=== PATIENT | male | born 1970 | race Caucasian/White ===

== ENCOUNTER → 2021-12-30 11:41 | Outpatient (BNVA) | payer MEDICAID, SELFPAY | PROVIDERS: Visit Provider Nurse Practitioner Family | DX: M54.2 Cervicalgia (principal); M47.892 Other spondylosis, cervical region | CPT/HCPCS: 72040 ==

== ENCOUNTER → 2024-11-30 09:03 | Outpatient (BNVA) | payer MEDICARE, MEDICAID, SELFPAY | PROVIDERS: Visit Provider Orthopaedic Surgery | DX: M25.511 Pain in right shoulder (principal); S46.211A Strain of muscle, fascia and tendon of other parts of biceps, right arm, initial encounter; X58.XXXA Exposure to other specified factors, initial encounter; E78.00 Pure hypercholesterolemia, unspecified; I25.2 Old myocardial infarction; R73.03 Prediabetes; Z98.62 Peripheral vascular angioplasty status; G89.29 Other chronic pain | CPT/HCPCS: 73030; 99204 ==

== ENCOUNTER 2024-12-08 06:41 | Outpatient (CLI) | payer MEDICARE, MEDICAID, SELFPAY ==
--- NOTE | 2024-12-08 07:15 | MR_ITS ---
WS: [id number] MRI RIGHT SHOULDER HISTORY: Right shoulder pain COMPARISON: Radiograph 11/30/2024 TECHNIQUE: Multiplanar sequences of the shoulder joint are submitted. Mild AC joint arthropathy. Mild subacromial impingement by enthesopathy. Very small amount of fluid in the subdeltoid bursa. No os acromion. Normal biceps tendon is not identified in the bicipital groove. There is a very small atrophied biceps tendon which is partially subluxed from the bicipital groove. Tendon appears torn and atrophied with intermediate signal. Increased signal within the tendon sheath. Large subchondral cystic changes in the humeral head. Subchondral cystic disease and edema measures 3.5 x 3.6 x 2.2 cm. No rotator cuff muscle atrophy or edema. There is a small amount of fluid in the subscapular recess. No tendon tears. Mild surface fraying of the superior labrum. No labral tear identified. MR/MR shoulder RT wo con* [id number] IMPRESSION: 1. Abnormal biceps tendon. Very small atrophied biceps tendon remains in the b icipital groove with intermediate signal. Suspect partially torn biceps tendon with tenosynovitis. There is fluid in the tendon sheath. 2. No rotator cuff tendon tear. 3. Mild AC joint arthropathy. 4. Mild subacromial impingement. 5. Large subchondral cystic changes in the humeral head.
== END 2024-12-08 06:42 | disposition home or self-care (01) ==
LOC: RAD 06:42
PROVIDERS: Visit Provider Orthopaedic Surgery
DX: M19.011 Primary osteoarthritis, right shoulder (principal); M75.41 Impingement syndrome of right shoulder; M85.611 Other cyst of bone, right shoulder
CPT/HCPCS: 73221